=== PATIENT | male | born 1975 | race Caucasian/White ===

== ENCOUNTER 2017-11-29 16:31 | Emergency (ER) | payer OTHER ==
[~2017-11-29] VITALS: Ht 170.2 cm; Wt 81.6 kg
[~2017-11-29 16:31] MED LIST: TOPROL XL50 M1 PO
== END 2017-11-29 22:31 | disposition home or self-care (01) ==
LOC: ER 16:31
DX: K29.70 Gastritis, unspecified, without bleeding (principal)